=== PATIENT | female | born 1960 | race African-American/Black ===

== ENCOUNTER 2016-11-25 05:04 | Emergency (ER) | payer BC ==
[~2016-11-25 05:04] MED LIST: BYETTA SC; BYETTA10 SC; CLARIT10 PO; DIOVAN HCT320 MG/25 PO; GLUCOV5 PO; KLOR-CON 1010 MEQ PO; L20 PO; MOBIC15 MG PO; PERCOCET1 TA4 PO; VALTREX1 GM PO; VALTREX5 PO; Valtrex
== END 2016-11-25 05:08 | disposition home or self-care (01) ==
LOC: ER 05:04
PROC: 0H96XZZ Drainage of Back Skin, External Approach (ICD-10-PCS; principal; 2016-11-25)
DX: L02.212 Cutaneous abscess of back [any part, except buttock and flank] (principal); I10 Essential (primary) hypertension; Z88.0 Allergy status to penicillin; Z88.5 Allergy status to narcotic agent; Z91.040 Latex allergy status; Z79.899 Other long term (current) drug therapy
CPT/HCPCS: 87070; 87205; 93005; 96372; 99283; J1170; J2405